=== PATIENT | male | born 1980 | race Caucasian/White ===

== ENCOUNTER 2016-11-05 23:18 | Emergency (ER) | payer BC ==
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
[2016-11-05] MEDS ORDERED: Sodium Chloride 0.9% 1,000 ML IV SCH (23:45)
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
[2016-11-06 01:30] VITALS: BP 129/75
--- NOTE | 2016-11-08 08:01 | CT ---
Head CT Technique: Multiple axial sections through the brain were obtained. Intravenous contrast was not utilized. Comparison: Previous head CT study of 08/31/16 is available. Findings: Ventricles along with basal cisterns and sulci over the convexities are within normal limits for the patient's age. No abnormal parenchymal densities are seen. No evidence of intracranial hemorrhage. No midline shift or mass effect is seen. Bone window settings were reviewed which show minimal mucosal thickening within the left maxillary sinus. Mastoid sinuses are clear. Middle ear cavities are clear. No acute calvarial abnormality is seen. Impression: 1. Nothing acute is identified on noncontrast head CT. No significant change is seen from previous exam other than decrease in soft tissue swelling. Diagnostic code #1 Agree with preliminary report issued by [facility] (preliminary [facility] report dictated on 11/06/16, 1:22 AM Central Time)
--- NOTE | 2016-11-08 10:31 | CT ---
CT cervical spine Technique: Multiple axial sections were obtained from above C1 inferiorly to the mid T2 level. Reconstructed sagittal and coronal images were reviewed. Comparison: Previous CT cervical spine exam of 08/31/16. Findings: Moderate disc space narrowing noted at C6-C7. Minimal disc space narrowing at C5-C6. Degenerative spurring seen within the uncovertebral joints at C5-C6 and C6-C7. Anterior osteophytes noted primarily at C6-C7. Posterior skull base is intact. Vertebral bodies and posterior arches appear intact. No fracture is seen. Mild right-sided neural foraminal stenosis noted at C6-C7. Other neural foramina are patent. No central canal stenosis is seen. No abnormal subluxation is seen on the reconstructed sagittal images. Impression: 1. Degenerative change as noted above. Findings are stable from previous study. 2. Nothing acute is identified on CT study of the cervical spine. Diagnostic code #2 Agree with preliminary report issued by [facility] (preliminary [facility] report dictated on 11/06/16, 1:19 AM Central Time)
== END 2016-11-06 01:45 | disposition home or self-care (01) ==
LOC: JD.ED 23:18
DX: S80.211A Abrasion, right knee, initial encounter (principal); F10.129 Alcohol abuse with intoxication, unspecified; E66.9 Obesity, unspecified; W51.XXXA Accidental striking against or bumped into by another person, initial encounter
CPT/HCPCS: 36415; 51702; 70450; 72125; 80053; 80306; 82550; 85025; 85610; 85730; 93005; 96360; 99285; G0480; J7040; 99283

== ENCOUNTER 2019-06-28 16:46 | Emergency (ER) | payer BC ==
[2019-06-28 17:00] VITALS: BP 197/98; PULSE 88
--- NOTE | 2019-06-28 17:19 | EDM.PDOC ---
ED HPI GENERAL MEDICAL PROBLEM - General Chief Complaint: Back Pain or Injury Stated Complaint: BACK PAIN Time Seen by Provider: 06/28/19 17:10 Source of Information: Reports: Patient, RN Notes Reviewed History Limitations: Reports: No Limitations - History of Present Illness INITIAL COMMENTS - FREE TEXT/NARRATIVE: Patient is a 39-year-old male who for the evaluation of mid to lower back pain. Patient states that around 4 AM this morning, he was showering, he was reaching for his clothing, he heard his back make a weird noise, and then developed pain in this area. He states that he has had pain there all day. He states that movement does make this worse. He states once he can get in a comfortable position, that the pain goes away a little bit, but is always there. He notes that the pain is kind of a pressure that pinches into his lower back. He denies any numbness or tingling into his extremities, or any radiation into the extremities. Patient notes he had a transient feeling of his legs being weak today, however this has since subsided. He denies any bowel or bladder incontinence. He did try to use one of his 's muscle relaxers, but he cannot remember the name, but he states it did not help much. Patient states that he missed work today due to the pain. Patient states he does not have a regular doctor that he sees, however he believes he went to the [facility] last year for walking pneumonia, and saw a female practitioner. Middle Back Pain Score (Numeric/FACES): 6 - Related Data Allergies Allergy/AdvReac Type Severity Reaction Status Date / Time No Known Allergies Allergy Verified 06/28/19 16:59 Home Meds: Home Meds Naproxen [Naprosyn] 500 mg PO Q12HR #20 tab 06/28/19 [Rx] Orphenadrine [Norflex] 100 mg PO BID PRN #20 tab 06/28/19 [Rx] Past Medical History - Past Health History Medical/Surgical History: Denies Medical/Surgical History Endocrine/Metabolic History: Reports: Obesity/BMI 30+ - Past Surgical History Head Surgeries/Procedures: Reports: None Social & Family History - Family History Family Medical History: Noncontributory - Tobacco Use Smoking Status *Q: Never Smoker - Caffeine Use Caffeine Use: Reports: Energy Drinks, Soda, Tea - Recreational Drug Use Recreational Drug Use: No - Living Situation & Occupation Living situation: Reports: , with Spouse, with Family Occupation: Employed ED ROS GENERAL - Review of Systems Review Of Systems: See Below Constitutional: Reports: No Symptoms HEENT: Reports: No Symptoms Respiratory: Denies: Shortness of Breath Cardiovascular: Denies: Chest Pain Endocrine: Reports: No Symptoms GI/Abdominal: Denies: Abdominal Pain, Constipation, Diarrhea, Nausea, Vomiting : Denies: Incontinence Musculoskeletal: Reports: Back Pain (mid-low back apin) Skin: Reports: No Symptoms Neurological: Denies: Numbness, Pre-Existing Deficit, Tingling, Gait Disturbance Psychiatric: Reports: No Symptoms Hematologic/Lymphatic: Reports: No Symptoms ED EXAM,LOWER BACK PAIN/INJURY - Physical Exam Exam: See Below Exam Limited By: No Limitations General Appearance: Alert, WD/WN, No Apparent Distress Respiratory/Chest: No Respiratory Distress, Lungs Clear, Normal Breath Sounds, No Accessory Muscle Use, Chest Non-Tender Cardiovascular: Normal Peripheral Pulses, Regular Rate, Rhythm, No Murmur GI/Abdominal: Normal Bowel Sounds, Soft, Non-Tender, No Distention, No Mass Back Exam: Normal Inspection, Paraspinal Tenderness (just above iliac crest to SI joint bilaterally, but worse on the left) Extremities: Normal Inspection, Normal Range of Motion, Normal Capillary Refill Neurological: Alert, Normal Mood/Affect, Normal Dorsiflexion, Normal Plantar Flexion, Normal Gait (careful steady gait), Oriented x 3. No: Straight Leg Raise (L), Straight Leg Raise (R), Saddle Anesthesia Psychiatric: Normal Affect, Normal Mood Skin Exam: Warm, Dry, Intact, Normal Color, No Rash Course - Vital Signs Last Recorded V/S: Last Vital Signs Temp 97.4 F 06/28/19 16:56 Pulse 88 06/28/19 16:56 Resp 18 06/28/19 16:56 BP 197/98 H 06/28/19 16:56 Pulse Ox 93 L 06/28/19 16:56 - Orders/Labs/Meds Meds: Medications Discontinued Medications Generic Name Dose Route Start Last Admin Trade Name Freq PRN Reason Stop Dose Admin Ketorolac Tromethamine 60 mg 06/28/19 17:27 06/28/19 18:05 Toradol IM 06/28/19 17:28 60 mg ONETIME ONE Administration Orphenadrine Citrate 100 mg 06/28/19 17:27 06/28/19 18:05 Norflex PO 06/28/19 17:28 100 mg ONETIME ONE Administration - Re-Assessments/Exams Free Text/Narrative Re-Assessment/Exam: 06/28/19 17:35 Patient presents to the ED for the evaluation of lower back pain. Did order 60mg Toradol and 100mg PO Norflex for initial management of this. 06/28/19 18:31 Patient was reassessed at bedside, states that his pain much better, he can get up and walk with less pain than he did when he walked in. He is happy with this at this time. I will provide him a prescription of Naprosyn and Norflex, and have him follow up with a provider at the [facility]. Departure - Departure Time of Disposition: 18:33 Disposition: Home, Self-Care 01 Condition: Fair Clinical Impression: Lower back pain Qualifiers: Chronicity: acute Back pain laterality: bilateral Sciatica presence: without sciatica Qualified Code(s): M54.5 - Low back pain - Discharge Information *PRESCRIPTION DRUG MONITORING PROGRAM REVIEWED*: No *COPY OF PRESCRIPTION DRUG MONITORING REPORT IN PATIENT LIZETH: No Prescriptions: Naproxen [Naprosyn] 500 mg PO Q12HR #20 tab Orphenadrine [Norflex] 100 mg PO BID PRN #20 tab PRN Reason: Spasms Instructions: Back Injury Prevention, [id number] Referrals: PCP,None [Primary Care Provider] - Forms: ED Department Discharge Additional Instructions: You have been evaluated in the ED for your mid-lower back pain Your pain is most likely due to musculoskeletal strain. Please use ice/heat as tolerated to the affected area. You were given a prescription for naproxen 500 mg, please take one tablet every 12 hours for pain relief. You were given a prescription for Norflex, a muscle relaxer, please take one tab every 12 hours for muscle spasms. Recommend you follow up with family practice provider of choice, as per your history, you stated that you had seen someone at the [facility], recommend you follow up with them mid to late next week regarding your back pain , to make sure that it is improving. Please return to ED if your symptoms should change or worsen.
[2019-06-28] MEDS ORDERED: Ketorolac 60 MG/2 ML SDV IM ONE (17:27)
[2019-06-28] MEDS ORDERED: Orphenadrine 100 MG Tab.ER PO ONE (17:27)
== END 2019-06-28 18:56 | disposition home or self-care (01) ==
LOC: JD.ED 16:46
DX: M54.5 Low back pain (principal); X58.XXXA Exposure to other specified factors, initial encounter; Y93.E1 Activity, personal bathing and showering
CPT/HCPCS: 96372; 99283; A9270; J1885

== ENCOUNTER 2023-12-28 17:03 | Emergency (ER) | payer BC ==
[2023-12-28 18:23] LABS: BASOPHILS PERCENT AUTO 0.3 % (0.0-1.0); EOSINOPHILS ABSOLUTE AUTO 0.7 K/mm3 (0.0-0.4); EOSINOPHILS PERCENT AUTO 7.3 % (0.0-6.0); HEMATOCRIT 43.4 % (42.0-52.0); HEMOGLOBIN 14.4 gm/dl (14.0-18.0); IMMATURE GRAN ABSOLUTE AUTO 0.03 K/mm3 (0.00-0.05); IMMATURE GRAN PERCENT AUTO 0.3 % (0.0-0.4); LYMPHOCYTES ABSOLUTE AUTO 1.2 K/mm3 (1.0-4.8); LYMPHOCYTES PERCENT AUTO 12.8 % (24.0-44.0); MEAN CORPUSCULAR HEMOGLOBIN 28.6 pg (28.0-32.0); MEAN CORPUSCULAR HGB CONC 33.2 g/dl (32.0-36.0); MEAN CORPUSCULAR VOLUME 86.1 fl (83.0-99.0); MEAN PLATELET VOLUME 9.2 fl (9.4-12.4); MONOCYTES ABSOLUTE AUTO 0.5 K/mm3 (0.0-0.8); MONOCYTES PERCENT AUTO 4.8 % (0.0-8.0); NEUTROPHILS ABSOLUTE AUTO 7.1 K/mm3 (1.8-7.7); NEUTROPHILS PERCENT AUTO 74.5 % (41.0-71.0); PLATELET COUNT,PLT 170 K/mm3 (150-400); RED BLOOD CELL COUNT 5.04 M/mm3 (4.52-5.90); WHITE BLOOD CELL COUNT,WBC 9.55 K/mm3 (3.9-11.3)
[2023-12-28 18:45] LABS: A/G RATIO 0.8 (1-2); ALBUMIN 3.3 g/dl (3.4-5.0); ANION GAP 9.6 (5-15); BILIRUBIN TOTAL 0.6 mg/dL (0.2-1.0); BUN/CREATININE RATIO 12.7 (14-18); CALCIUM 9.1 mg/dL (8.5-10.1); CREATININE 1.1 mg/dL (0.7-1.3); EST CRCL DRUG DOSING (CG) 82.05 mL/min; POTASSIUM,K 3.6 mEq/L (3.5-5.1); PROTEIN TOTAL,TP 7.5 g/dl (6.4-8.2)
[2023-12-28 18:56] LABS: LACTIC ACID 0.6 mmol/L (0.4-2.0)
[2023-12-28] MEDS ORDERED: Sodium Chloride 0.9% 100 ML IV SCH (19:00)
[2023-12-28] MEDS: Iopamidol 755 Mg/ML 100 ML Bottle IVPUSH ONE (19:45)
[2023-12-28 21:33] VITALS: BP 144/78; PULSE 67
== END 2023-12-28 21:33 | disposition home or self-care (01) ==
LOC: JD.ED 17:03
DX: J90 Pleural effusion, not elsewhere classified (principal); R06.09 Other forms of dyspnea; K70.30 Alcoholic cirrhosis of liver without ascites; F10.10 Alcohol abuse, uncomplicated; I10 Essential (primary) hypertension; E66.9 Obesity, unspecified
CPT/HCPCS: 36415; 71046; 71275; 80053; 83605; 83880; 85025; 85379; 93005; 99285; Q9967; 93010; 99284

== ENCOUNTER 2024-01-05 14:28 | Emergency (ER) | payer BC ==
[2024-01-05 15:42] LABS: A/G RATIO 0.7 (1-2); ALBUMIN 3.3 g/dl (3.4-5.0); ANION GAP 11.9 (5-15); BILIRUBIN TOTAL 0.8 mg/dL (0.2-1.0); BUN/CREATININE RATIO 11.1 (14-18); CALCIUM 9.4 mg/dL (8.5-10.1); CREATININE 0.9 mg/dL (0.7-1.3); EST CRCL DRUG DOSING (CG) 100.28 mL/min; POTASSIUM,K 3.9 mEq/L (3.5-5.1)
[2024-01-05 15:43] LABS: PHOSPHORUS 2.8 mg/dL (2.6-4.7)
[2024-01-05 15:45] LABS: BASOPHILS PERCENT AUTO 0.2 % (0.0-1.0); EOSINOPHILS ABSOLUTE AUTO 0.9 K/mm3 (0.0-0.4); EOSINOPHILS PERCENT AUTO 9.2 % (0.0-6.0); HEMATOCRIT 43.4 % (42.0-52.0); HEMOGLOBIN 14.4 gm/dl (14.0-18.0); IMMATURE GRAN ABSOLUTE AUTO 0.03 K/mm3 (0.00-0.05); IMMATURE GRAN PERCENT AUTO 0.3 % (0.0-0.4); LYMPHOCYTES ABSOLUTE AUTO 1.1 K/mm3 (1.0-4.8); LYMPHOCYTES PERCENT AUTO 11.9 % (24.0-44.0); MEAN CORPUSCULAR HGB CONC 33.2 g/dl (32.0-36.0); MEAN CORPUSCULAR VOLUME 84.3 fl (83.0-99.0); MEAN PLATELET VOLUME 9.1 fl (9.4-12.4); MONOCYTES ABSOLUTE AUTO 0.5 K/mm3 (0.0-0.8); MONOCYTES PERCENT AUTO 5.1 % (0.0-8.0); NEUTROPHILS ABSOLUTE AUTO 6.8 K/mm3 (1.8-7.7); NEUTROPHILS PERCENT AUTO 73.3 % (41.0-71.0); PLATELET COUNT,PLT 193 K/mm3 (150-400); RED BLOOD CELL COUNT 5.15 M/mm3 (4.52-5.90); WHITE BLOOD CELL COUNT,WBC 9.25 K/mm3 (3.9-11.3)
[2024-01-05 15:46] LABS: APPEARANCE,URINE CLEAR (Clear); BILIRUBIN,URINE NEGATIVE (Negative); COLOR,URINE YELLOW (Yellow); GLUCOSE,URINE NEGATIVE (Negative); KETONES,URINE NEGATIVE (Negative); LEUKOCYTE ESTERASE,URINE NEGATIVE (Negative); NITRITE,URINE NEGATIVE (Negative); OCCULT BLOOD,URINE TRACE-INTACT (Negative); PROTEIN,URINE NEGATIVE (Negative)
[2024-01-05 15:56] LABS: INR 1.01; PROTHROMBIN TIME 10.8 SECONDS (9.7-12.0)
[2024-01-05 15:58] LABS: D-DIMER QUANTITATIVE 2.3 mg/L (0.19-0.50)
[2024-01-05 15:59] LABS: CORONAVIRUS COVID-19 NAA NEGATIVE (NEGATIVE); INFLUENZA A NAA NEGATIVE (NEGATIVE); RESPIRATORY SYNCYTIAL VIR NAA NEGATIVE (NEGATIVE)
[2024-01-05 16:10] LABS: BACTERIA,URINE FEW /hpf (FEW); EPITHELIAL CELLS,URINE 0-5 /hpf (0-5); MUCUS,URINE FEW /hpf (FEW); RBC,URINE 0-5 /hpf (0-5); WBC,URINE 0-5 /hpf (0-5)
[2024-01-05] MEDS ORDERED: Sodium Chloride 0.9% 100 ML IV SCH (16:45)
[2024-01-05] MEDS: Albuterol/Ipratropium 3.0-0.5 MG/3 ML Neb Soln NEB ONE (17:00)
[2024-01-05] MEDS: Pantoprazole 40 MG Vial IVPUSH ONE (17:04)
[2024-01-05] MEDS: Aspirin 81 MG Tab.Chew PO ONE (17:06)
[2024-01-05] MEDS: methylPREDNISolone Sodium Succinate 125 MG/2 ML SDV IVPUSH ONE (17:08)
[2024-01-05] MEDS: Sodium Chloride 0.9% 10 ML Syringe FLUSH PRN (17:08)
[2024-01-05] MEDS: cefTRIAXone 1 GM in Sodium Chloride 0.9% 100 ML IV ONE (17:11)
[2024-01-05] MEDS: Iopamidol 755 Mg/ML 100 ML Bottle IVPUSH ONE (17:31)
[2024-01-05 18:51] VITALS: BP 167/93; PULSE 77
== END 2024-01-05 18:48 | disposition home or self-care (01) ==
LOC: JD.ED 14:28
DX: K74.69 Other cirrhosis of liver (principal); J90 Pleural effusion, not elsewhere classified; Z79.51 Long term (current) use of inhaled steroids; Z79.899 Other long term (current) drug therapy
CPT/HCPCS: 0241U; 36415; 71045; 71275; 81001; 83735; 84100; 84484; 85379; 85610; 94640; 96365; 96375; 99285; A9270; C9113; J0696; J2930; J3490; Q9967; 80053; 83880; 85025; J7620-GY